=== PATIENT | male | born 1980 | race Caucasian/White ===

== ENCOUNTER 2017-01-11 00:05 | Emergency (ER) | payer SELFPAY ==
[~2017-01-11] VITALS: Ht 167.6 cm; Wt 86.2 kg
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
[2017-01-11 00:23] VITALS: BP 141/89
--- NOTE | 2017-01-11 00:25 | NUR ---
[place] [employer] AT BEDSIDE
--- NOTE | 2017-01-11 00:32 | NUR ---
Dr. Diggs evaluating patient
[2017-01-11] MEDS ORDERED: HYDROcodone/APAP 5/325 MG 1 TAB TAB PO ONE (00:40)
[2017-01-11] MEDS ORDERED: KETOROLAC 30 MG/ML VIAL IM ONE (00:40)
--- NOTE | 2017-01-11 00:43 | NUR ---
PT MOVED TO BED 5
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
--- NOTE | 2017-01-11 00:48 | NUR ---
RT AT BEDSIDE
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
--- NOTE | 2017-01-11 02:00 | NUR ---
Patient discharged with v/s stable. Written and verbal after care instructions given and explained. Patient alert, oriented and verbalized understanding of instructions. Ambulatory with steady gait. All questions addressed prior to discharge. ID band removed. Patient advised to follow up with PMD. Rx of NORCO 5/325 MG, NAPROSYN 500 MG given. Patient educated on indication of medication including possible reaction and side effects. Opportunity to ask questions provided and answered.
[2017-01-11 02:05] VITALS: BP 127/80
== END 2017-01-11 02:00 | disposition home or self-care (01) ==
LOC: MED 00:05
DX: S20.219A Contusion of unspecified front wall of thorax, initial encounter (principal); S83.91XA Sprain of unspecified site of right knee, initial encounter; R03.0 Elevated blood-pressure reading, without diagnosis of hypertension; V49.49XA Driver injured in collision with other motor vehicles in traffic accident, initial encounter; Y93.89 Activity, other specified; Y92.488 Other paved roadways as the place of occurrence of the external cause; Y99.8 Other external cause status
CPT/HCPCS: 71010; 73562; 96372; 99284; J1885